=== PATIENT | male | born 1960 | race Caucasian/White ===

== ENCOUNTER 2017-07-10 15:37 | Inpatient (IN) | payer BC ==
[~2017-07-10] VITALS: Ht 190.5 cm; Wt 175.1 kg
[2017-07-10] MEDS ORDERED: IBUPROFEN 800800 M1 PO (17:46)
[2017-07-10] MEDS ORDERED: FLEXERIL PO ×2 (17:47→18:44)
[2017-07-10] MEDS ORDERED: ENOXAPARIN40 MG/0.1 SUBQ (17:48)
[2017-07-10] MEDS ORDERED: DILAUDID 2 MG TA2 MG PO (17:49)
[2017-07-10] MEDS ORDERED: OXYCODONE HCL 55 MG PO ×2 (17:50→17:53)
[2017-07-10 18:06] VITALS: BP 138/81
--- NOTE | 2017-07-10 19:11 | NUR ---
ASSUMMED CARE OF PT UPON ADMISSION TO UNIT AT 1750, PT ALERT AND ORIENTED, PT ORIENTED TO ROOM, TRANSFERRED WITH GB AND WALKER CUEING, ASSIST OF 1, ABLE TO SEE OLD DRAINAGE ON DRESSING, RIGHT LEG SWOLLEN, DRY SKIN ON BILATERAL HEELS, ORDERS OBTAINED, ASSESSMENT COMPLETE, WILL CONTINUE TO MONITER.
[2017-07-10 20:00] VITALS: BP 126/67
[2017-07-11 04:38] LABS: HEMATOCRIT 41.4 % (42.0-52.0); HEMOGLOBIN 13.3 gm/dL (14.0-18.0); MCH 26.8 pg (26.0-34.0); MCV 83.7 fL (80.0-100.0); MPV 7.7 fl. (7.2-11.1); RBC 4.95 mil/uL (4.50-6.00); RDW-CV 13.5 % (10.5-14.5); WBC 7.5 thou/uL (4.0-11.0)
[2017-07-11 04:43] LABS: CALCIUM 8.4 mg/dL (8.5-10.1); CREATININE 1.1 mg/dL (0.6-1.3); POTASSIUM 4.4 mmol/L (3.5-5.1)
--- NOTE | 2017-07-11 05:24 | NUR ---
ASSUMED CARES AT 1920. PT ALERT AND ORIENTED X 4. PLEASANT. S/P RIGHT TKA. RLE WBAT. PAIN MEDS GIVEN PRN. TAKES PILLS WHOLE WITHOUT ISSUES. ONLY WEARS O2 4L NC AT NIGHT. MOM WAS GIVEN DUE TO PT NOT HAVING BM FOR FEW DAYS. PT AWOKE AT 0300 HAVING REMOVED MOST OF DRESSING TO RIGHT KNEE. INCISION IS WELL APPROXINATED WITH GIDEON. OLD BANDAGE HAS DRIED BLOOD BUT NO DRAINAGE NOTED FROM INCISION. NEW DRESSING WAS APPLIED AND LEG WRAPPED WITH NOAH BANDAGE. LEG ELEVATED UP ONTO PILLOW. SLEPT MOST OF THE NIGHT. CALL LIGHT IN REACH AND BED ALARM ON.
[2017-07-11 08:03] VITALS: BP 111/73
--- NOTE | 2017-07-11 16:30 | NUR ---
SW met with pt to complete initial assessment, introduce self, as SW role. Pt alert and oriented although sleepy. Pt home independently but with support sometimes and says that he will be safe at home because of "[place] and [place]". Pt has a twin sister as a contact and also has a girlfriend Marilyn [phone]. Pt has a RW, no hx HH, and says that he thinks he might need a BSC at dc. Pt signed pt rights consent form. Pt stated his goal on rehab to be "rehab". SW to continue to follow to assist with safe dc planning.
--- NOTE | 2017-07-11 18:26 | NUR ---
PT PAIN MANAGED WELL WITH ORDERED PAIN MEDS. DRESSING TO R KNEE CHANGED AFTER GETTING WET IN SHOWER. R KNEE SWOLLEN, GIDEON INTACT, NO DRAINAGE NOTED FROM INCISION. NOAH WRAP APPLIED TO R KNEE. PT ENCOURAGED TO LEAVE BANDAGE AND NOAH WRAP IN PLACE. PT UP WITH MIN ASSIST USING GAIT BELT AND WALKER. PT REPORTS BEING UNABLE TO PUT MUCH WEIGHT ON RLE. PT ABLE TO MAKE NEEDS KNOWN, CALL LIGHT IN REACH
[2017-07-11 20:00] VITALS: BP 133/73
--- NOTE | 2017-07-12 05:09 | NUR ---
ASSUMED CARES AT 1920. PT ALERT AND ORIENTED. PLEASANT. WAS UP IN RECLINER. S/P RT TKA. WBAT RLE. RLE EDEMA. DRESSING TO RIGHT KNEE INTACT WITH NOAH WRAP. DENIED ANY NEED FOR FURTHER PAIN MEDS. TAKES PILLS WITHOUT ISSUES. GAVE MOM AGAIN TONIGHT PT HAS NOT HAVE BM IN DAYS. HE IS A MOD ASSIST WITH GAIT BELT AND WALKER. NEEDS EXTRA TIME. PT NEEDED ASSIST WITH LIFTING RT LEG IT IS VERY STIFF. O2 4L NC AT NOC BUT PT ONLY KEEPS ON FOR SHORT TIME BEFORE REMOVING. PT REFUSED LOVENOX EVEN AFTER EDUCATION ON USE. RECOMMENDED PT DISCUSS FURTHER WITH . PT USED URINAL AND RN EMPTIED. USED CALL LIGHT APPROPRIATELY. BED ALARM ON.
[2017-07-12 08:58] VITALS: BP 147/86
--- NOTE | 2017-07-12 12:53 | NUR ---
Nutrition: Pt admitted to rehab with Rt TKA. He stated he usually weighs around 365#. (Today's bed wt is inaccurate of 386#). He stated his appetite is good, eating 100% of regular diet. Provided pt with a menu, as he was requesting extra fruit and juice with his meals. Appears at low nutrition risk at this time.
--- NOTE | 2017-07-12 14:40 | NUR ---
SW met with pt and pt girlfriend to review team conference summary. Plan for pt to remain on rehab and for team to reassess pt length of stay during team conference on Thursday 07/19. Pt and pt girlfriend are in agreement with plan. SW to continue to follow to assist with safe dc planning.
--- NOTE | 2017-07-12 18:42 | NUR ---
ASSUMED CARE AT 0730 PATIENT ALERT/ORIENTED, UP WITH ASSIST OF ONE. UNCONTROLLED PAIN THIS AM, DID NOT WANT TO WORK WITH THERAPY. PRN PAIN MEDS GIVEN X 3 THIS SHIFT WITH FLEXERIL GIVEN, PATIENT STILL HAS NOT HAD A BM AND HAS ORDERED MEDS FOR THIS. NEW ORDER FOR CPM AND HUY WITH INITIATE TOMORROW. DRESSING TO RIGHT KNEE CLEAN/DRY/INTACT, LEG IS SWOLLEN AND WARM, XRAY OF KNEE CAME BACK OK, SEE REPORT. PARTICIPATED IN ALL THERAPIES TODAY, HOURLY ROUNDING COMPLETED, BED/CHAIR ALARMS IN PLACE, REFUSED TO GO TO DINING ROOM FOR MEALS, WAS IN BED OR TOO MUCH PAIN. CONTINUE WITH CURRENT PLAN OF CARE
[2017-07-12 20:20] VITALS: BP 134/80
--- NOTE | 2017-07-13 01:48 | NUR ---
ASSUMED CARE @ 1933-07/12-MON.SITS EDGE OF BED.FENCE BUILDER ASSISTED TO LIFT LEFT LE INTO BED @ 1933.RIGHT KNEE-WARM & EDEMATOUS.EDEMA ALSO +1 PITTING RIGHT FOOT. URINAL W/IN REACH.WANTS RIGHT LE UP ON A PILLOW & DONE BY FENCE BUILDER.K PAD APPLIED TO RIGHT KNEE @ 1946.BED ALARM PUT ON @ 1949.FENCE BUILDER CLAIMS SAW PATIENT WALKING FROM TOILET.PATIENT DID NOT CALL.FAN ON FOOT PART OF BED.SLEEPING @ 2014 N& AWAKENED FOR HS MEDS.HOB UP.O2 PUT ON @ 2036 @ 4L/NC.SCD'S PUT ON LEGS @ 2044. AT 2219-REFUSED LEFT LEG SCD.TEMP @ 2019-99.0 ORAL.TEMP.RECHECKED @ 2224-97.3 ORAL.AT 24-FOUND PATIENT TOOK OFF DRSG LEFT KNEE.NEW DRSG APPLIED TO RIGHT KNEE 24.REFUSED RIGHT LEG SCD @ 24-.SEE PAIN MANAGEMENT @ 0016 W/ PRN FLEXERIL GIVEN W/ PAIN MED.ON HOURLY ROUNDS.FENCE BUILDER STAYED FROM 1929 TO 2099.
--- NOTE | 2017-07-13 05:43 | NUR ---
SLEEPING SINCE 2014.AWAKE BRIEFLY 2X @ 0000 FOR PAIN MED & @ 0500.NURSE EMPTIES URINAL @ NIGHT.USED URINAL X1 ONLY.REFUSED HS SNACK.REFUSED SUPPO- -SITORY NOR ENEMA.CLAIMS RIGHT KNEE IS STILL TOO TIGHT-IT'S VERY HARD FOR HIM TO GO BACK & FORTH TO BSC.
[2017-07-13 08:18] VITALS: BP 135/73
--- NOTE | 2017-07-13 17:50 | NUR ---
ASSUMED CARE AT 0730 PATIENT ALERT/ORIENTED UP WITH ASSIST OF ONE AND WALKER, PAIN MEDS GIVEN AT 0750 AND 1230 WITH FAIR RELIEF, STARTED ON CPM THIS AFTERNOON, NOT TOLERATING, VERY PAINFUL TO RIGHT KNEE. HEATING PAD WITH FAIR RELIEF. PARTICIPATED IN ALL THERAPIES TODAY, BED/CHAIR ALARMS IN PLACE, HOURLY ROUNDING COMPLETED. SUPPOSITORY GIVEN WITH GOOD RESULTS. DRESSING TO RIGHT KNEE INTACT. EDEMA/REDDNESS/WARM TO RIGHT LEG, NO CHANGES FROM ADMISSION ASSESSMENT. CONTINUE WITH CURRENT PLAN OF CARE
[2017-07-13 20:55] VITALS: BP 134/75
--- NOTE | 2017-07-14 04:39 | NUR ---
ASSUMED PATIENT CARE AT APPROX 1900. PATIENT ALERT AND ORIENTED TIMES FOUR. UP IN CHAIR AT BEDSIDE. ABLE TO TRANSFER WITH MOD ASSISST OF ONE, WALKER AND GAIT BELT. PATIENT REFUSED USE OF CPM. COMPLAINTS OF PAIN WITH TRANSFER. DRESSING C/D/I. O2 IN PLACE VIA NC AT HS. PATIENT WAS STARTING TO FALL ASLEEP RN SCANNED MEDICATION FOR HS. NO PAIN MEDICATION HAD BEEN GIVEN AT THIS TIME. PATIENT SLEPT THROUGH MOST OF THE SHIFT, SNORING NOTED. NURSING ASSESSMENT AND HOURLY ROUNDING COMPLETED DOCUMENTED
[2017-07-14 08:00] VITALS: BP 135/81
--- NOTE | 2017-07-14 12:18 | NUR ---
AM ASSESSMENT AND VITAL SIGNS COMPLETED DOCUMENTED. PT HAS BEEN PLEASANT AND COOPERATIVE THIS AM. PAIN MEDICATION GIVEN BEFORE THERAPY WITH GOOD RESULTS. PT REFUSED TO GO TO THE DINING ROOM FOR LUNCH. FALL PRECAUTIONS AND HOURLY ROUNDING OBSERVED.
--- NOTE | 2017-07-14 17:13 | NUR ---
PT PARTICIPATED DURING THERAPY TODAY, ADEQUATE PAIN MANAGEMENT IN PLACE. PT IS MAKING PROGRESS TOWARD DISCHARGE GOALS, NO CHANGE IN PLAN OF CARE. DRESSING TO RIGHT KNEE INCISION C/D/I.
--- NOTE | 2017-07-14 19:55 | NUR ---
RESTING QUIETLY IN BED AND WATCHING TV. DENIES DISCOMFORT AND/OR NEED FOR PAIN MED. RIGHT KNEE DRESSINGS DRY/INTACT. TOOK MEDS WHOLE WITH WATER. SNACK PROVIDED.
[2017-07-14 20:25] VITALS: BP 127/82
--- NOTE | 2017-07-15 05:50 | NUR ---
DIDN'T GO TO SLEEP UNTIL AFTER MIDNIGHT. CURRENTLY RESTING QUIETLY. USED URINAL DURING THE NIGHT. HOURLY ROUNDING IN PROGRESS.
[2017-07-15 08:00] VITALS: BP 133/76
--- NOTE | 2017-07-15 10:02 | NUR ---
AM ASSESSMENT AND VITAL SIGNS COMPLETED DOCUMENTED. PT PLEASANT AND COOPERATIVE THIS AM. PRN MEDS GIVEN PRIOR TO THERAPY. DRESSING TO RIGHT KNEE CHANGED, OLD DRESSING CAME OFF DURING THE NIGHT. INCISION TO RIGHT KNEE IS WELL APPROXIMATED WITH GIDEON IN PLACE, NO INDICATION OF INFECTION. HOURLY ROUNDING AND FALL PRECAUTIONS IN PLACE.
--- NOTE | 2017-07-15 18:06 | NUR ---
PT HAS RESTED IN BED THIS AFTERNOON, RIGHT LEG IS IN THE CPM AND HE IS TOLERATING IT WELL, GOOD PAIN CONTROL ACHIEVED. NO ACUTE DISTRESS.
[2017-07-15 19:50] VITALS: BP 127/66
--- NOTE | 2017-07-15 19:50 | NUR ---
REMOVED CPM PER PT'S REQUEST. PT'S GIRLFRIEND HERE VISITING. GAVE FLEXERIL PER REQUEST. TOOK MEDS WHOLE WITH WATER. RIGHT KNEE DRESSINGS X 2 DRY/INTACT. PLACED 02 NC AT TWO LITERS.
--- NOTE | 2017-07-16 06:22 | NUR ---
RESTED ON/OFF. NO COMPLAINTS OF PAIN. DR. WISE ROUNDED THIS AM. HOURLY ROUNDING IN PROGRESS.
[2017-07-16 08:05] VITALS: BP 147/91
--- NOTE | 2017-07-16 18:50 | NUR ---
ASSUMED CARE OF PATIENT AFTER MORNING REPORT. ALERT AND ORIENTED X4. ASSESSMENT COMPLETED AND IS CHARTED. VSS ON ROOM AIR. PATIENT HAS HAD NO COMPLAINTS OF NAUSEA THIS SHIFT. PAIN HAS BEEN MANAGED WITH MEDICATION. PATIENT RESTED COMFORTABLY IN HIS ROOM THROUGHOUT THE SHIFT TODAY. HOURLY ROUNDS HAVE BEEN MAINTAINED. CALL LIGHT IS WITHIN REACH. NURSING WILL CONTINUE TO MONITOR.
[2017-07-16 20:30] VITALS: BP 140/73
--- NOTE | 2017-07-16 20:30 | NUR ---
SITTING UP IN W/C WITH RIGHT LEG ELEVATED ON THE BED. PT YAWNING AND APPEARS TIRED BUT INSIST ON SITTING UP IN RECLINER FOR NOW. TRANSFERRED WITH SBA, WALKER AND SOME ASSIST WITH LIFTING RIGHT LEG. DID AGREE TO HAVE LEGS ELEVATED WHILE IN THE RECLINER. WON'T WEAR 02 AT NIGHT. 02 SAT ON ROOM AIR 95% URINAL AND CALL LIGHT WITHIN REACH. REFUSED ALL OF HS MEDS.
--- NOTE | 2017-07-17 05:28 | NUR ---
RESTED QUIETLY IN RECLINER ALL NIGHT. USED URINAL X ONE. HOURLY ROUNDING IN PROGRESS.
[2017-07-17 07:50] VITALS: BP 133/82
--- NOTE | 2017-07-17 17:13 | NUR ---
ASSUMED CARE AT 0730. ALERT ORIENTED PLEASANT COOPERATIVE. HX OF RTKA. EDEMA PRESENT FOOT ANKLE RT. LEG. TRANSFERS WITH 1 ASSIST AND AMBULATES TO BR TO HAVE BM. ABLE TO DO HYGEINE AND CLOTHING ADJUSTMENTS. DRESSING C/DI RT. KNEE NO DRAINAGE. MEDICATED WITH PRN PAIN MED LATER IN THE SHIFT. UP IN RECLINER WITH EXTREMETIES ELEVATED. GIRLFRIEND HERE ASSISTED HIM WITH SPONGE BATH AFTER NOON, USING CALL LIGHT APPROPRIATELY FOR ASSIST. APPETITE [facility] BROUGHT FOOD IN TODAY.
[2017-07-17 19:55] VITALS: BP 142/86
--- NOTE | 2017-07-18 01:59 | NUR ---
ASSUMED CARE @ 1931-07/17-MONDAY.SITS IN RECLINER ON PHONE @ THIS TIME.SEE PAIN MANAGEMENT @ 2023 FOR C/O RIGHT KNEE PAIN W/ PRN FLEXERIL 10 MG ORAL GIVEN.TACHYCARDIC-108/MIN-REGULAR.STILL REFUSING HS DOSE LOVENOX.REFUSED HS COLACE & 2200 DOSE PILOCARPINE TAB.URINAL W/IN REACH.NURSE EMPTIES URINAL @ NIGHT.WANTS TO GO TO BED @ 0030 W/ SBA ONLY W/ GB & WALKER.HOB UP IN BED.BED ALARM PUT ON @ 0030.WANTS CPM ON & APPLIED @ 0050 TO RIGHT KNEE FROM 0-20 DEGREES.K PAD APPLIED ALSO TO RT KNEE @ 0050.REFUSED FOR RN TO INCREASE FLEXION DEGREES.
--- NOTE | 2017-07-18 05:30 | NUR ---
AWAKE @ 0200-WANTS FAN ON.CPM OFF @ 0250.APPLIED X 2 HOURS.USED URINAL X3. SLEEPING SINCE 2200.TOOK POPCORN W/ GRAPE JUICE HS SNACKS.REFUSED SENNA SHEDULED DOSES @ 0000 & 0600.HAD LARGE BM X1-07/17.
[2017-07-18 08:00] VITALS: BP 137/84
--- NOTE | 2017-07-18 13:18 | NUR ---
AM ASSESSMENT AND VITAL SIGNS COMPLETED DOCUMENTED. PT HAS BEEN COOPERATIVE AND PLEASANT, MAKING GOOD PROGRESS WITH THERAPY. PAIN HAS BEEN WELL CONTROLLED WITH PRN MEDICATIONS. HOURLY ROUNDING AND FALL PRECAUTIONS IN PLACE.
[2017-07-18 20:01] VITALS: BP 136/79
--- NOTE | 2017-07-19 01:01 | NUR ---
ASSUMED CARE @ 1919-.SITS IN RECLINER W/ LE'S UP.GIRL FRIEND VISITING @ THIS TIME.CHAIR ALARM ALREADY ON @ 1919.MUSCLE RUB OINT.APPLIED TO INNER & OUTER SIDES OF RIGHT KNEE @ 2042.REFUSED TO USE CPM THIS EVENING. EDEMA-RIGHT KNEE & +1 PITTING FEET & ANKLES.SEE PAIN MANAGEMENT @ 2128. WANTS TO GO TO BED @ 0.SBA TO BED @ 14-07/19-MON.HOB UP.SIDERAILS UP X4. RIGHT LE ELEVATED ON A PILLOW.K PAD TO RIGHT KNEE APPLIED @ 14.WANTS O2 ON @ 2L/NC & O2 PUT ON.BED ALARM PUT ON @ 14.
--- NOTE | 2017-07-19 05:40 | NUR ---
SLEEPING SINCE 2214.USED URINAL X2.NURSE EMPTIES URINAL @ NIGHT.ON HOURLY ROUNDS.HAND WORKER DOING ODD HOUR ROUNDS.HAD OREO COOKIES & PINEAPPLE JUICE HS SNACKS.
[2017-07-19 07:59] VITALS: BP 125/79
--- NOTE | 2017-07-19 13:46 | NUR ---
AM ASSESSMENT AND VITAL SIGNS COMPLETED DOCUMENTED. PT CONTINUES TO PROGRESS TOWARD DISCHARGE GOALS. PAIN MANAGEMENT HAS BEEN EFFECTIVE AND HE HAS PARTICIPATED WITH ALL THERAPIES TODAY. TEAM MEETING HELD TODAY, PT WILL TRANSITION TO MODIFIED INDEPENDENT IN HIS ROOM MONDAY WITH AN ANTICIPATED DISCHARGE ON MONDAY.
[2017-07-19 17:07] VITALS: BP 125/79
--- NOTE | 2017-07-19 17:15 | NUR ---
SW met with pt to review team conference summary. Plan for pt to dc home with girlfriend on Saturday 07/21. services to follow. Pt okay with plan. SW reviewed team's reports on pt functioning: supervision to modified independent with all tasks of mobility and ADLs. Pt uses FWW and pt has a FWW already. Pt said his girlfriend will be able to help him find any other equipment or AD that he may want to use. SW to continue to follow to assist with safe dc planning.
[2017-07-19 20:26] VITALS: BP 118/74
--- NOTE | 2017-07-20 01:32 | NUR ---
ASSUMED CARE @ 1932-07/19-MON.SITS IN RECLINER W/ LE'S UP VISITING W/ GIRL FRIEND,DAUGHTER & EX .RIGHT KNEE INCISION-SHANKAR W/ GIDEON.RUG UNDERLAY MACHINE OPERATOR FOUND PATIENT IN SINK ON HIS W/C WASHING HANDS.DID NOT CALL FOR SBA.CLAIMS HAD MOD BM IN TOILET @ 2240.URINAL W/IN REACH.GIRL FRIEND WENT HOME @ 0010.EDEMA-RIGHT KNEE /+1 PITTING LEFT FOOT & +2 PITTING RT FOOT & RT ANKLE.SEE PAIN MANAGEMENT @ 0020 W/ PRN FLEXERIL.REFUSING HS DOSES CYMBALTA,LOVENOX,PILOCARPINE TABS, & SENNA.SBA TO BED @ 0033.HOB UP.RIGHT LE UP ON A PILLOW.K PAD APPLIED TO RIGHT KNEE @ 0035.02 2L/NC APPLIED @ [address] OF C PAP W/C PT LEFT @ HOME.ON HOURLY ROUNDS.RUG UNDERLAY MACHINE OPERATOR DOING ODD HOUR ROUNDS.NURSE EMPTIES URINAL @ NIGHT.
--- NOTE | 2017-07-20 05:33 | NUR ---
SLEEPING SINCE 399.USED URINAL X2.TOOK 2 ADDY.MILK HS SNACKS.AWAKE MOST OF TIME SINCE 1932 TO 199-07/20-MONDAY.FOR MODIFIED IND.TODAY-. TO DC GIDEON ALSO TODAY.
[2017-07-20 07:40] VITALS: BP 134/77
[2017-07-20 08:04] VITALS: BP 134/77
[2017-07-20 10:51] VITALS: BP 125/79
--- NOTE | 2017-07-20 14:28 | NUR ---
[facility]LE faxed referral to [facility] as pt preference, MERLE called and spoke with Beverly in intake and they were unable to see pt until Wednesday 07/26. [facility] called [facility] and spoke with Mariel in intake, [phone], and they are able to accept referral and see pt on Monday. MERLE faxed referral and orders to [phone]. Pt to vt home with girlfriend on Monday. Pt says he'll be ready.
[2017-07-20 14:52] VITALS: BP 125/79
[2017-07-20 21:58] VITALS: BP 130/93
[2017-07-21 02:06] VITALS: BP 125/79
--- NOTE | 2017-07-21 05:22 | NUR ---
ASSUMED CARES AT 1920. PT UP IN RECLINER. ALERT AND ORIENTED. PLEASANT. S/P RIGHT TKA. RIGHT KNEE INCISION WITH DRESSING IS INTACT. RLE EDEMA. ENCOURAGED PT TO KEEP LEG ELEVATED. PT AMADA IN RM WITH WALKER. PAIN MEDS GIVEN PER REQUEST. TAKES PILLS WITHOUT ISSUES. NO COMPLAINTS. CALL LIGHT IN REACH.
[2017-07-21 07:51] VITALS: BP 132/78
[2017-07-21 10:00] VITALS: BP 125/79
--- NOTE | 2017-07-21 10:19 | NUR ---
ASSUMED CARE AT 0730. ALERT ORINTED [facility] COOPERATIVE. HX OF RTKA, DRESSING PLACED THIS A.M. C/D/I INCISION. DENIES PAIN OR REQUESTS. MODIFIED INDEPENDENT IN ROOM. VOIDS IN URINAL LARGE AMTS. SIMI URINE. REFUSES ALL MEDS THIS A.M. WILL BE DISCHARGED HOME TODAY.
--- NOTE | 2017-07-21 12:13 | NUR ---
Pt to dc home with girlfriend today. [facility] services to follow and will see pt on Monday. Pt has RW already; pt will not receive a CPM due to pt insurance only covering 17 days post surgery as explained by BJ with [facility]; pt was not sure he would actually use CPM anyway. Pt girlfriend to provide pt ride home.
--- NOTE | 2017-07-21 12:22 | NUR ---
PATIENT GIVEN WRITTEN TKR EX'S FOR HOME.
[2017-07-21 13:30] VITALS: BP 125/79
--- NOTE | 2017-07-21 14:01 | NUR ---
PT. WAS GIVEN DISCHARGE INSTRUCTIONS SCRIPTS AND MONOGRAPHS VERBALIZED UNDERSTANDING OF INSTRUCTIONS ALLOWED TIME FOR QUESTIONS. DISCHARGED PER W/C WITH WALKER AND PT. BELONGINGS AT 1330 WITH GIRLFRIEND TO HOME WITH ELIZABETH P.T. PER PRIVATE CAR.
--- NOTE | 2017-08-01 15:43 | H ---
[facility] [address] [place] [address] HISTORY AND PHYSICAL Name: WILDMANAN Room: [address] IN M.R.#: [id number] Admission: 07/10/17 Attend Phys: Kera Larson DO Discharge: 07/21/17 Date of : 64 Report #: [id number] THIS REPORT FOR: //name// CC: Kera Martinh Damon DATE OF SERVICE: 07/10/2017 HISTORY OF PRESENT ILLNESS: This is a 57-year-old male who is admitted to inpatient rehabilitation to facilitate safe discharge to home setting after a hospitalization at [facility] on 07/07/2017, after an elective right total knee arthroplasty secondary to tricompartment osteoarthritis and uncontrolled pain. In the postoperative period, he did require 4 liters of oxygen. Pain was not manageable. The patient is also morbidly obese. His BMI is greater than 48. Now that he is medically stable, he is admitted to inpatient rehabilitation to facilitate safe discharge home after physical and occupational therapy. Previous level of function is independent with activities of daily living. Current level of function is [id number] assistance of 1-2 depending on therapy, activity and time of day. Comprehension, expression, social interaction, and problem solving are all within functional limits. Estimated length of stay is 10-12 days with discharge disposition to the home setting with supportive family where he lives in a townhouse with his girlfriend who is in good health and able to assist on discharge. He also has grown children. PAST MEDICAL HISTORY: Morbid obesity, chronic pain, osteoarthritis, obstructive sleep apnea, and colon polyps. PAST SURGICAL HISTORY: None except total knee arthroplasty. ALLERGIES: To LATEX. REVIEW OF SYSTEMS: A 14-point review of systems is done and is negative except as mentioned in the HPI, specifically no fever, chest pain, shortness of breath, change in bowel or change in bladder. Pain is now well controlled. PHYSICAL EXAMINATION: GENERAL: Alert, oriented, in no apparent distress. VITAL SIGNS: Reviewed and are stable. HEENT: Head atraumatic, normocephalic. Pupils are equal, round, and reactive. ABDOMEN: Soft, nontender, and nondistended. NEUROLOGIC: Cranial nerves 2-12 are grossly intact with no focal neuro deficits, 5/5 strength in bilateral upper and lower extremity. SKIN: Warm and dry. Incision is freshly dressed and not viewed at this time. ASSESSMENT: Status post right total knee arthro[place] [address] HISTORY AND PHYSICAL Name: MANAN ROME Room: [address] IN [facility]#: [id number] Admission: 07/10/17 Attend Phys: Kera Larson, DO Discharge: 07/21/17 Date of : 64 Report #: [id number] osteoarthritis, multiple medical comorbidities. PLAN: 1. Admission to inpatient rehabilitation to facilitate safe discharge home. 2. PT, OT, case management, nursing and HIMS to make evaluations and recommendations. 3. We will team him weekly. 4. Plan of care is pending. 5. Medication reconciliation has been completed. <ELECTRONICALLY SIGNED> By: Kera Larson DO 08/01/17 1543 1616 1701Kera Larson DO /nt
--- NOTE | 2017-08-01 15:43 | PLAN ---
[facility] [address] [place] [address] REHAB UNIT PLAN OF CARE Name: MANAN ROME Room: [address] IN M.R.#: [id number] Admission: 07/10/17 Attend Phys: Kera Larson DO Discharge: 07/21/17 Date of : 64 Report #: [id number] THIS REPORT FOR: //name// CC: Kera Damon OVERALL PLAN OF CARE This is a 57-year-old male status post right total knee arthroplasty on 07/06/2017 in the postoperative period. He did require some oxygenation at 4 liters per O2. Pain was not manageable, now is under better control. He is also morbidly obese with a history of colon polyps. MEDICAL PROGNOSIS: Good. REHABILITATION PROGNOSIS: Good. Previous level of function is independent with activities of daily living. Current level of function is minimum to moderate assistance of 1-2 depending on therapy, activity and time of day. Estimated length of stay is 10-12 days with discharged disposition to the home setting. Physical therapy will see the patient 60-90 minutes per day, 5 days per week, working on upper and lower body strength, balance, coordination, navigation. Occupational therapy will work with the patient 60-90 minutes per day, 5 days per week, working on upper and lower body strength, balance, coordination, navigation, bathing, dressing, and toileting. This is an overall plan of care, may change from time to time, we will team him weekly and make changes to plan of care as needed. <ELECTRONICALLY SIGNED> By: Kera Larson DO 08/01/17 1543 1618 [id number] Larson DO /nt
--- NOTE | 2017-09-13 13:45 | D ---
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 Discharge disposition is to home. The patient did progress towards independence with therapies with physical and occupational therapy. Pain was well controlled. No significant medical issues arose. He was discharged with home health PT, OT and nursing. He will follow with his primary care physician within 1 week and follow up with orthopedic surgery in 2 weeks. calorie ADA diet. Fall precautions and front wheel walker for ambulation. CPM machine twice daily. Medication reconciliation was completed. DISCHARGE PHYSICAL EXAMINATION: GENERAL: Alert, oriented, in no apparent distress. VITAL SIGNS: Reviewed and are stable. HEENT: Head atraumatic, normocephalic. Pupils are equal, round, and reactive. ABDOMEN: Soft, nontender, and nondistended. NEUROLOGIC: Cranial nerves 2-12 are grossly intact with no focal neuro deficits, 5/5 strength in the bilateral upper and lower extremity. SKIN: Incision is clean, dry and intact. <ELECTRONICALLY SIGNED> By: Kera Larson DO 09/13/17 1345 [id number] Larson DO /nt
== END 2017-07-21 13:30 | disposition home health service (06) | DRG 560 ==
LOC: M.REH 15:37
PROVIDERS: ADMIT Physical Medicine & Rehabilitation
DX: Z47.1 Aftercare following joint replacement surgery (principal); Z68.42 Body mass index [BMI] 45.0-49.9, adult; E66.01 Morbid (severe) obesity due to excess calories; G89.29 Other chronic pain; I10 Essential (primary) hypertension; K59.00 Constipation, unspecified; G47.33 Obstructive sleep apnea (adult) (pediatric); Z86.010 Personal history of colon polyps; Z91.040 Latex allergy status; Z82.49 Family history of ischemic heart disease and other diseases of the circulatory system

== ENCOUNTER 2017-08-19 09:05 | Inpatient (IN) | payer BC ==
[~2017-08-19] VITALS: Ht 188 cm; Wt 169.6 kg
[~2017-08-19 09:05] MED LIST: DILAUDID 2 MG TA2 MG PO; ENOXAPARIN40 MG/0.1 SUBQ; FLEXERIL PO; IBUPROFEN 800800 M1 PO; OXYCODONE HCL 55 MG PO
[2017-08-19 09:18] VITALS: BP 154/80
[2017-08-19 10:18] LABS: CALCIUM 9.2 mg/dL (8.5-10.1); CREATININE 0.9 mg/dL (0.6-1.3); POTASSIUM 3.7 mmol/L (3.5-5.1)
[2017-08-19 10:19] LABS: ABSOLUTE EOSINOPHILS 0.4 thou/uL (0.0-0.7); MPV 7.8 fl. (7.2-11.1); WBC 4.1 thou/uL (4.0-11.0)
[2017-08-19 10:21] LABS: ABSOLUTE BASOPHILS 0.1 thou/uL (0.0-0.2); ABSOLUTE LYMPHOCYTES 0.9 thou/uL (0.8-5.3); ABSOLUTE MONOCYTES 0.6 thou/uL (0.0-1.2); ABSOLUTE NEUTROPHILS 2.1 thou/uL (1.6-8.1); EOSINOPHILS 9.9 %; HEMATOCRIT 45.4 % (42.0-52.0); HEMOGLOBIN 15.1 gm/dL (14.0-18.0); LYMPHOCYTES 22.2 %; MCH 26.6 pg (26.0-34.0); MCHC 33.2 g/dL (28.0-37.0); MCV 79.9 fL (80.0-100.0); MONOCYTES 14.5 %; NUCLEATED RBCS 0 /100WBC; PLATELET COUNT* 183 thou/uL (150-400); POLYS 51.4 %; RBC 5.68 mil/uL (4.50-6.00)
[2017-08-19 10:23] LABS: ALBUMIN 3.4 g/dL (3.4-5.0); TOTAL BILIRUBIN 0.4 mg/dL (<0.1-1.0); TOTAL PROTEIN 7.9 g/dL (6.4-8.2)
[2017-08-19 15:33] VITALS: BP 123/78
--- NOTE | 2017-08-19 15:42 | NUR ---
pt to room from ER. appears alert o x 4, denies brie pain, denies SOB at rest, place don O2 at 3l per NC, denies p[ain, c/o cough. Hx R knee surgery 07-06-17, bilat calves soft, denies pain in either calf when feet dorsiflexed
--- NOTE | 2017-08-19 17:08 | NUR ---
pt stated on chronic pain RX in home secondary, arthritic pain, low back pain. States pain minimal at this time, wears CPAP at HS , Called Dr Isabel , updated , states concerned about pts resp, would consider once pt was on CPAP
--- NOTE | 2017-08-19 19:09 | NUR ---
pt resting in bed, progressing towardes goal. O x 4, denies chest pain, SOB, c/o cough, werars CPAP at HS, Abx switched to po
[2017-08-19 21:15] VITALS: BP 148/68
[2017-08-19 23:35] VITALS: BP 147/87
[2017-08-20 03:50] VITALS: BP 140/77
[2017-08-20 04:42] LABS: HEMATOCRIT 40.4 % (42.0-52.0); MCHC 32.2 g/dL (28.0-37.0); MCV 80.9 fL (80.0-100.0); MPV 7.4 fl. (7.2-11.1); RDW-CV 13.7 % (10.5-14.5); WBC 4.4 thou/uL (4.0-11.0)
[2017-08-20 05:01] LABS: CALCIUM 8.1 mg/dL (8.5-10.1); MAGNESIUM 1.8 mg/dL (1.8-2.4); POTASSIUM 3.6 mmol/L (3.5-5.1)
--- NOTE | 2017-08-20 07:01 | NUR ---
PT IS ABLE TO COMMUNICATE HIS NEEDS TO STAFF EFFECTIVELY. CURRENT PAIN MEDICATION REGIMEN HAS BEEN ADEQUATE FOR CONTROLLING HIS PAIN UP TO THIS TIME. FAMILY TO BRING PT'S OWN CPAP IN LATER TODAY.
--- NOTE | 2017-08-20 08:04 | NUR ---
PT RESTING IN BED, appears alert o x 4, denies chest pain, sob, pain or diwscomfort, does c/o cough. stattes feels a liitle better than yesterday
[2017-08-20 08:06] VITALS: BP 133/72
--- NOTE | 2017-08-20 12:15 | EKG ---
[place] [id number] ELECTROCARDIOGRAM REPORT Name: MANAN ROME Room: [address] ADM IN .R.#: [id number] Admission: 08/19/17 Attend Phys: Orlin Isabel, Discharge: Date of : 64 Report #: [id number] THIS REPORT FOR: //name// [facility] ED Test Date: 2017-08-19 Test Time: 10:27:20 Pat Name: MANAN ROME Department: Room: [facility] Gender: M Manager Shift: MS : 1960 Requested By: Ez Ward Order Number: [id number] MD: Kristopher Kulkarni Measurements Intervals [place] [employer] Rate: 97 P: 56 NE: 164 QRS: 4 QRSD: 94 T: 53 QT: 342 QTc: 435 Interpretive Statements Sinus rhythm No previous ECG available for comparison Electronically Signed On 08-20-2017 12:15:08 LOCK OPERATOR by Kristopher Kulkarni [email or web address] <ELECTRONICALLY SIGNED> By: Kristopher Kulkarni MD, [facility] 08/20/17 1215 1027 1027 Kristopher Kulkarni MD, FACC /EPI
[2017-08-20 18:57] VITALS: BP 145/90
[2017-08-20 20:26] VITALS: BP 131/79
--- NOTE | 2017-08-20 23:24 | NUR ---
PT REFUSED TO KEEP TELEMETRY EQUIPMENT ON HIS PERSON AT 20:10 ON 08/20/17. IT WAS EXPLAINED TO HIM WHY HE SHOULD KEEP IT ON, HOWEVER, HE STILL REFUSED TO WEAR HIS TELEMETRY.
[2017-08-21 00:11] VITALS: BP 140/76
[2017-08-21 04:00] VITALS: BP 145/84
[2017-08-21 04:58] LABS: HEMATOCRIT 40.2 % (42.0-52.0); HEMOGLOBIN 12.9 gm/dL (14.0-18.0); MCH 26.1 pg (26.0-34.0); MCHC 32.1 g/dL (28.0-37.0); MCV 81.1 fL (80.0-100.0); MPV 7.5 fl. (7.2-11.1); RBC 4.96 mil/uL (4.50-6.00); RDW-CV 13.7 % (10.5-14.5); WBC 4.3 thou/uL (4.0-11.0)
[2017-08-21 05:43] LABS: CALCIUM 8.2 mg/dL (8.5-10.1); CREATININE 0.9 mg/dL (0.6-1.3); MAGNESIUM 1.9 mg/dL (1.8-2.4); POTASSIUM 3.7 mmol/L (3.5-5.1); TOTAL BILIRUBIN 0.4 mg/dL (<0.1-1.0); TOTAL PROTEIN 6.3 g/dL (6.4-8.2)
--- NOTE | 2017-08-21 09:12 | NUR ---
PT IS ABLE TO COMMUNICATE HIS NEEDS TO STAFF EFFECTIVELY. HE HAS DENIED THE NEED FOR PAIN MEDICATION UP TO THIS TIME. MENTIONED IN AN EARLIER NOTE, HE HAS REFUSED TELEMETRY MONITORING DURING THIS SHIFT, BEGINNING AT APPROXIMATELY 20:10 08/20/17. HE IS TENTATIVELY SCHEDULED FOR A VQ SCAN TODAY.
[2017-08-21 09:45] VITALS: BP 141/80
[2017-08-21 11:23] LABS: INFLUENZA A ANTIGEN None Detected (None Detect); INFLUENZA B ANTIGEN None Detected (None Detect)
[2017-08-21 11:58] VITALS: BP 151/71
--- NOTE | 2017-08-21 13:54 | NUR ---
pt has refused tele monitoring today
--- NOTE | 2017-08-21 14:35 | NUR ---
MET WITH PT TO DISCUSS HOME SITUATION/DC PLANNING. PT KNOWN TO CM FROM PREVIOUS REHAB STAY AFTER TKR. PT ADMITTE DWITH PNEUMONIA. STATES HE LIVES WITH HIS MOTHER NORMALLY BUT STAYS WITH HIS GIRLFRIEND 'QUITE A BIT.' HE IS INDEPENDENT WITH ADLS. STILL USING WALKER. HE HAD [facility] [place] FROM [facility]HAB BUT HAS BEEN DISMISSED FROM THAT AND NOW GOING TO SERV FOR THERAPY. HE VOICED FRUSTATION WITH CURRENT ILLNESS AND ONGOING HE STATES SINCE MAR. SUPPORT PROVIDED. PT PLANS TO RETURN HOME WITH GF AT [place]. WILL FOLLOW
[2017-08-21 15:42] VITALS: BP 150/93
--- NOTE | 2017-08-21 18:28 | NUR ---
Pt resting in bed, without C/O, up in chair most of day.Has rtefused Tele monitoring, Ohycians aware, Venous US adn VQ scan neg, Seen by Pulmonary today, Remains on IV ABX, Progressing towards goals
[2017-08-21 20:00] VITALS: BP 157/91
[2017-08-22 00:01] VITALS: BP 137/81
[2017-08-22 04:00] VITALS: BP 147/86
[2017-08-22 08:00] VITALS: BP 152/89
[2017-08-22 11:41] VITALS: BP 169/97
--- NOTE | 2017-08-22 12:06 | CON ---
[address] [address] CONSULTATION Name: WILDMANANElbert SHERIFF Room: [address] IN M.R.#: [id number] Admission: 08/19/17 Attend Phys: Orlin Isabel, Discharge: Date of : 64 Report #: [id number] THIS REPORT FOR: //name// CC: Roddy Isabel REASON FOR CONSULTATION: Shortness of breath, cough, wheezes. HISTORY OF PRESENT ILLNESS: The patient is a 57-year-old male patient with no known history of lung disease in the past, never smoker, never had history of asthma. He presented and admitted through the Emergency Room on 08/19/2017 with chest congestion, cough that has been going on since June. He had a surgery in the right knee at this facility in June and he told me even before that he had issues with cough. The cough is actually severe, dry; he feels he is not producing any sputum, that was associated with upper airways noises and what he thought is a wheeze. He has a background history of obstructive sleep apnea, on CPAP that he uses every night. He is not on any inhaler or oxygen at home. Also, he had history of rhinorrhea in the past. He tried Flonase for the cough by his primary care doctor, although he was not consistent with it. He was not sure if he was actually short of breath, but he does not think he is short of breath. He reported just the cough comes in severe spasm and causing him to vomit. He has history of reflux disease and he feels heart burn on and off, although he is not on a regular medication for that. He takes p.r.n. medication for that, he mentioned one of them is Becca Redig. He reported for the last few years, he noted that every year he would get an attack of bronchitis associated with wheezes that responds to steroids and he feels the breathing treatment we are doing here actually is helping him. PAST MEDICAL HISTORY: He has no known lung disease in the past. Does not smoke. PAST SURGICAL HISTORY: Include torn meniscus and total right knee replacement just few weeks ago. HOME MEDICATIONS: He is on oxycodone and cyclobenzaprine. He tried Flonase for a short period of time. FAMILY HISTORY: Reviewed with the patient. He has a twin sister with history of asthma. SOCIAL HISTORY: He does not smoke, does not drink alcohol, does not abuse drugs. He works is maintenance. REVIEW OF SYSTEMS: He denied fever, chills, rhinorrhea at this point although he had it before. He denied chest pain or palpitation. He does not think he is short of breath. He denied bleeding from any orifice. He had no dysuria, [place] [address] CONSULTATION Name: MANAN ROME Room: [address] IN [facility]#: [id number] Admission: 08/19/17 Attend Phys: Orlin Isabel, Discharge: Date of : 64 Report #: [id number] frequency, urgency or lower extremity edema or pain. PHYSICAL EXAMINATION: VITAL SIGNS: On examination, he is on room air with saturation 96%, blood pressure 140/80, breathing 19 times a minute, temperature 36.7. GENERAL: Overweight gentleman. Awake, alert, oriented, not in pain, not in distress. HEENT: Head normocephalic, atraumatic. Pupils equal, reactive to light. Not pale, not jaundiced. External ear looks healthy and normal. Oral cavity, Mallampati of 2-3, moist mucous membrane, no thrush. NECK: Supple. No palpable lymph node, no palpable thyroid. Trachea central. HEART: S1, S2. No murmur, no gallop. ABDOMEN: Benign, soft, lax, nontender, positive bowel sounds. CHEST: Diminished air movement bilaterally with end expiratory wheeze mostly in the apices. Also, some noisy breathing in the retrosternal area. EXTREMITIES: Lower extremity, no edema noted. Clean wound of the right knee. No calf tenderness. MUSCULOSKELETAL: No deformities. Normal inspection. No contracture. PSYCHIATRIC: Mood and affect is appropriate. Good insight and judgment. NEUROLOGIC: Moving all 4 extremities spontaneously. No focal weakness. LABORATORY DATA: His chest x-ray was unremarkable. I did review the images: CT of the chest was suboptimal. No evidence of PE, but there is some right lower lobe infiltrate, although it is minimal. His white blood count is 4.1, hemoglobin 15.1 and platelets of 183. His creatinine is 0.9, potassium 3.7. His influenza A and B rapid test was negative. IMPRESSION: 1. Cough. 2. Bronchospasm. 3. Gastroesophageal reflux disease. 4. Possible postnasal drip. 5. Possible hyperactive airway disease. PLAN: The clinical picture of the patient indicate some evidence of hyperactive airway disease, especially with wheezes and recurrent attacks of bronchitis that respond to steroids and the fact he responds to bronchodilator therapy here too. However, he had uncontrolled reflux disease, which could be causing silent aspiration and silent reflux causing the chronic cough. My recommendation at this point is we need to rule out the PE. I agree with the V/Q scan. I will add Doppler ultrasound of the lower extremities. At the same time, we will start him on PPI for treating his reflux disease. I did instruct him to sleep with the head of the bed elevated and he needs to continue CPAP therapy during the night. Also, I will add the Flonase for his symptoms. I did instruct him [address] [address] CONSULTATION Name: MANAN ROME Room: [address] IN ..#: [id number] Admission: 08/19/17 Attend Phys: Orlin Isabel, Discharge: Date of : 64 Report #: [id number] he needs to use these medications for 6 weeks before he starts noticing improvement in his symptoms. Also we gave him steroids because of bronchospasm. Continue scheduled nebulization treatment and I would recommend albuterol inhaler at the time of discharge. Thank you for the consult. We will follow along with you. <ELECTRONICALLY SIGNED> By: Angelica Larson MD 08/22/17 1206 [id number] Larson MD /nt
[2017-08-22] MEDS ORDERED: PROTONIX 20 MG20 M1 PO (15:43)
[2017-08-22] MEDS ORDERED: CEFUROXIME250 MG PO (15:44)
[2017-08-22] MEDS ORDERED: VENTOLIN HFA 1818 GM INH (15:44)
[2017-08-22] MEDS ORDERED: FLOVENT HFA 4444 MCG INH (15:44)
[2017-08-22] MEDS ORDERED: PREDNISONE 10 M10 MG PO (15:45)
[2017-08-22 15:56] VITALS: BP 169/97
== END 2017-08-22 16:30 | disposition home or self-care (01) | DRG 193 ==
LOC: M.ERS 09:05 → M.TBA-ER 13:21 → M.2W 13:21
PROVIDERS: Emergency Medicine Emergency Medical Services; Internal Medicine; ADMIT Family Medicine
DX: J18.1 Lobar pneumonia, unspecified organism (principal); J96.01 Acute respiratory failure with hypoxia; R65.10 Systemic inflammatory response syndrome (SIRS) of non-infectious origin without acute organ dysfunction; Z68.42 Body mass index [BMI] 45.0-49.9, adult; K21.9 Gastro-esophageal reflux disease without esophagitis; Z96.651 Presence of right artificial knee joint; J98.01 Acute bronchospasm; G47.33 Obstructive sleep apnea (adult) (pediatric); M17.11 Unilateral primary osteoarthritis, right knee; E66.01 Morbid (severe) obesity due to excess calories; Z79.899 Other long term (current) drug therapy; Z91.040 Latex allergy status; Z72.89 Other problems related to lifestyle; Z83.6 Family history of other diseases of the respiratory system

== ENCOUNTER 2018-07-07 15:34 | Emergency (ER) | payer BC ==
[~2018-07-07] VITALS: Ht 188 cm; Wt 165.6 kg
[~2018-07-07 15:34] MED LIST changes: +CEFUROXIME250 MG PO; +FLOVENT HFA 4444 MCG INH; +PREDNISONE 10 M10 MG PO; +PROTONIX 20 MG20 M1 PO; +VENTOLIN HFA 1818 GM INH
[2018-07-07] MEDS ORDERED: IBUPROFEN 800800 M1 PO (15:52)
[2018-07-07 16:26] LABS: INFLUENZA A ANTIGEN None Detected (None Detect); INFLUENZA B ANTIGEN None Detected (None Detect)
[2018-07-07 17:10] LABS: URINE BILIRUBIN NEGATIVE (Negative); URINE BLOOD NEGATIVE (Negative); URINE CLARITY CLEAR; URINE COLOR YELLOW; URINE GLUCOSE-RANDOM NEGATIVE (Negative); URINE KETONES NEGATIVE (Negative); URINE LEUKOCYTES-REFLEX NEGATIVE (Negative); URINE NITRITE-REFLEX NEGATIVE (Negative); URINE PROTEIN NEGATIVE (Negative); URINE SPECIFIC GRAVITY 1.015 (1.005-1.030); URINE UROBILINOGEN 0.2 E.U./dl (0.2-1.0)
[2018-07-07 17:55] VITALS: BP 165/105
== END 2018-07-07 17:55 | disposition home or self-care (01) ==
LOC: M.ERS 15:34
PROVIDERS: Nurse Practitioner Family
DX: B34.9 Viral infection, unspecified (principal); R42 Dizziness and giddiness; M19.90 Unspecified osteoarthritis, unspecified site; G89.29 Other chronic pain; M54.5 Low back pain; E66.01 Morbid (severe) obesity due to excess calories; Z68.42 Body mass index [BMI] 45.0-49.9, adult; Z91.040 Latex allergy status; Z96.651 Presence of right artificial knee joint